=== PATIENT | female | born 1945 | race Caucasian/White ===

== ENCOUNTER → 2016-09-14 | Outpatient (CLI) | payer MEDICARE ==
--- NOTE | 2016-09-15 08:31 | ECHOF ---
Referral Reason:R06.01 Orthopnea MEASUREMENTS -------- HEIGHT: 170.2 cm WEIGHT: 115.2 kg BP: 139/65 RVIDd: 2.4 cm (< 3.3) IVSd: 1.3 cm (0.6 - 1.1) LVIDd: 4.4 cm (3.9 - 5.3) LVPWd: 1.4 cm (0.6 - 1.1) IVSs: 1.7 cm LVIDs: 2.7 cm LVPWs: 1.8 cm LAESV Index (A-L): 10.86 ml/m Ao Diam: 3.3 cm (2.0 - 3.7) AV Cusp: 1.9 cm (1.5 - 2.6) LA Diam: 3.1 cm (2.7 - 3.8) MV EXCURSION: 18.048 mm (> 18.000) MV EF SLOPE: 58 mm/s (70 - 150) EPSS: 1.1 cm MV E Ab: 0.68 m/s MV DecT: 263 ms MV A Ab: 0.80 m/s MV E/A Ratio: 0.85 RAP: 5.00 mmHg RVSP: 10.82 mmHg FINDINGS -------- Sinus rhythm. This was a technically adequate study. The left ventricular size is normal. There is moderate concentric left ventricular hypertrophy. Overall left ventricular systolic function is normal with, an EF between 55 - 60 %. The right ventricle is normal in size and function. Normal LA size by volume 22+/-6 ml/m2. The right atrium is normal in size. The aortic valve is trileaflet, and appears structurally normal. No aortic stenosis or regurgitation. The mitral valve is normal. There is trace to mild mitral regurgitation. Trace tricuspid regurgitation present. There is no evidence of pulmonary hypertension. The right ventricular systolic pressure, as measured by Doppler, is 10.82mmHg. The pulmonic valve was not well visualized. There is no pulmonic regurgitation present. The aortic root size is normal. Normal inferior vena cava with normal inspiratory collapse consistent with estimated right atrial pressure of 5 mmHg. There is no pericardial effusion. CONCLUSIONS -------- 1. Sinus rhythm. 2. The right ventricular systolic pressure, as measured by Doppler, is 10.82mmHg. 3. The pulmonic valve was not well visualized. 4. There is no pulmonic regurgitation present. 5. The aortic root size is normal. 6. There is no pericardial effusion. 7. This was a technically adequate study. 8. There is moderate concentric left ventricular hypertrophy. 9. Overall left ventricular systolic function is normal with, an EF between 55 - 60 %. 10. Normal LA size by volume 22+/-6 ml/m2. 11. The aortic valve is trileaflet, and appears structurally normal. No aortic stenosis or regurgitation. 12. There is trace to mild mitral regurgitation. 13. Trace tricuspid regurgitation present. 14. There is no evidence of pulmonary hypertension. ANALYTICS DIRECTOR: Fidencio Henderson RDCS
== END | disposition home or self-care (01) ==
LOC: RADECHMAIN 15:56
PROVIDERS: ATTEND Internal Medicine
DX: I08.1 Rheumatic disorders of both mitral and tricuspid valves (principal)
CPT/HCPCS: 93306

== ENCOUNTER → 2016-10-02 | Outpatient (CLI) | payer MEDICARE ==
[2016-10-02 11:22] VITALS: BMI 38.8
== END | disposition home or self-care (01) ==
LOC: MNTWWP 10:54
PROVIDERS: ATTEND Internal Medicine
DX: E66.01 Morbid (severe) obesity due to excess calories (principal)
CPT/HCPCS: 97802

== ENCOUNTER 2019-09-25 09:38 | Day surgery (SDC) | payer MEDICARE ==
[2019-09-23 11:38] VITALS: BMI 41.1
[~2019-09-25 09:38] MED LIST: LACTATED RINGERS 1,000 ML IV SCH; LIDOCAINE 1% (10MG/ML) FOR IV START INTRADERMA PRN
[2019-09-25 10:13] VITALS: TEMP 98.2
[2019-09-25] MEDS ORDERED: PROPOFOL 10 MG/ML 20 ML VIAL IV ONE (10:54)
--- NOTE | 2019-09-25 11:24 | P.PCN ---
Date of Procedure: 09/25/19 Implants: BRIEF HISTORY: Patient is a 73-year-old pleasant female scheduled for an elective colonoscopy as a part of evaluation of positive cologuard PROCEDURE PERFORMED: Colonoscopy snare polypectomy. PREOPERATIVE DIAGNOSIS: positive cologuard IV sedation per Anesthesia. PROCEDURE: After informed consent was obtained, the patient, was brought into the endoscopy unit. IV sedation was administered by Anesthesia under continuous monitoring. Digital rectal examination was normal. Initially the Olympus CF-160 flexible video colonoscope was then inserted in the rectum, gradually advanced into the cecum without any difficulty. Careful examination was performed as the scope was gradually being withdrawn. Ileocecal valve and the appendiceal orifice were visualized and appeared normal. There was a 3 cm broad-based polyp adjacent to the appendiceal orifice which was removed by piecemeal snare malick ypectomy and complete polypectomy could not be accomplished. In the ascending colon there was a 1 cm polyp removed by snare polypectomy. In the descending colon there was a 1 cm flat polyp removed by snare polypectomy. In the; there was a 2 cm polyp removed by snare polypectomy. The rectum appeared normal. Retroflexion was performed in the rectum and no lesions were seen. The patient tolerated the procedure well. IMPRESSION: 3 cm broad-based cecal polyp adjacent to the appendiceal orifice and status post snare polypectomy ( complete polypectomy not accomplished) 1 cm ascending colon polyp status post polypectomy 1. centimeters meter flat descending colon polyp status post polypectomy 2 cm; sigmoid colon polyp status post polypectomy RECOMMENDATIONS: Findings of this examination were discussed with the patient as well as a family. She was advised to follow with the biopsy results. If the biopsy results will plan a repeat colonoscopy in 3-6 months
[2019-09-25 11:26] VITALS: BP 122/62; PULSE 79; RESP 17
== END 2019-09-25 11:54 | disposition home or self-care (01) ==
LOC: ORWHC2ENDO 09:38
PROVIDERS: ATTEND Internal Medicine Gastroenterology
DX: D12.2 Benign neoplasm of ascending colon (principal); K63.5 Polyp of colon; D12.4 Benign neoplasm of descending colon; D12.5 Benign neoplasm of sigmoid colon; I10 Essential (primary) hypertension; E07.9 Disorder of thyroid, unspecified; K21.9 Gastro-esophageal reflux disease without esophagitis; I78.0 Hereditary hemorrhagic telangiectasia; Z88.2 Allergy status to sulfonamides; Z79.899 Other long term (current) drug therapy; Z79.890 Hormone replacement therapy; Z88.8 Allergy status to other drugs, medicaments and biological substances; Z96.652 Presence of left artificial knee joint
CPT/HCPCS: 88305; 45385; J2704

== ENCOUNTER 2019-09-25 17:34 | Inpatient (IN) | payer MEDICARE ==
[2019-09-25] MEDS ORDERED: PANTOPRAZOLE 40 MG/10 ML VIAL IVP STA (19:17)
--- NOTE | 2019-09-25 19:21 | ED ---
General Adult HPI <Italo Rodriguez - Last Filed: 09/25/19 20:52> - General Source: patient, RN notes reviewed Mode of arrival: ambulatory Limitations: no limitations <Yohan Sanches - Last Filed: 09/25/19 20:59> - General Chief complaint: GI Bleed Stated complaint: surgery complications Time Seen by Provider: 09/25/19 19:04 - History of Present Illness Initial comments: 73-year-old female with a past medical history of GERD, hypertension, as Osler Larios Rendu disease presents to the emergency room for a chief complaint of rectal bleeding. Patient states she had a colonoscopy performed around 10 AM this morning where she reports that for polyps were removed. This was performed by Dr. Ruiz. Reports that she had had some bleeding since that time. States it started as a dark red blood and then progressed to bright red blood. Patient reports that she has turned the toilet bowl water completely red about 5 times. Patient denies any other symptoms. Patient called Dr. Ruiz who reported she should return to the emergency room.Patient has no other complaints at this time including shortness of breath, chest pain, abdominal pain, nausea or vomiting, headache, or visual changes. (Yohan Sanches) - Related Data Home Medications Medication Instructions Recorded Confirmed Benazepril [Lotensin] 10 mg PO DAILY 09/23/19 09/25/19 Levothyroxine Sodium [Synthroid] 88 mcg PO DAILY 09/23/19 09/25/19 Omeprazole 20 mg PO DAILY 09/23/19 09/25/19 amLODIPine [Norvasc] 5 mg PO DAILY 09/23/19 09/25/19 hydroCHLOROthiazide [Hydrodiuril] 25 mg PO DAILY 09/23/19 09/25/19 Allergies Allergy/AdvReac Type Severity Reaction Status Date / Time rosuvastatin [From Crestor] AdvReac SEVERE Verified 09/25/19 18:33 JOINT PAIN Sulfa (Sulfonamide AdvReac Anaphylaxis Verified 09/25/19 18:33 Antibiotics) Review of Systems ROS Other: All systems not noted in ROS Statement are negative. <Italo Rodriguez - Last Filed: 09/25/19 20:52> ROS Other: All systems not noted in ROS Statement are negative. <Yohan Sanches - Last Filed: 09/25/19 20:59> ROS Statement: Those systems with pertinent positive or pertinent negative responses have been documented in the HPI. Past Medical History Past Medical History: Blood Disorder, GERD/Reflux, Hypertension, Thyroid Disorder Additional Past Medical History / Comment(s): HX OWRD (OSLER LARIOS RENDU DISEASE-BLOOD DISORDER). + COLOGARD History of Any Multi-Drug Resistant Organisms: None Reported Past Surgical History: Appendectomy, Joint Replacement, Orthopedic Surgery, Tubal Ligation Additional Past Surgical History / Comment(s): BILAT CTR. LT TKA. COLONOSCOPY Past Anesthesia/Blood Transfusion Reactions: No Reported Reaction Past Psychological History: No Psychological Hx Reported Smoking Status: Former smoker Past Alcohol Use History: None Reported Past Drug Use History: None Reported - Past Family History Mother Family Medical History: Blood Disorder Additional Family Medical History / Comment(s): OWRD-BLEEDING DISORDER Father Family Medical History: Cancer Additional Family Medical History / Comment(s): SKIN <Yohan Sanches - Last Filed: 09/25/19 20:59> General Exam Limitations: no limitations General appearance: alert, in no apparent distress Head exam: Present: atraumatic, normocephalic, normal inspection Eye exam: Present: normal appearance, PERRL, EOMI. Absent: scleral icterus, conjunctival injection, periorbital swelling ENT exam: Present: normal exam, mucous membranes moist Neck exam: Present: normal inspection, full ROM. Absent: tenderness, meningismus, lymphadenopathy Respiratory exam: Present: normal lung sounds bilaterally. Absent: respiratory distress, wheezes, rales, rhonchi, stridor Cardiovascular Exam: Present: regular rate, normal rhythm, normal heart sounds. Absent: systolic murmur, diastolic murmur, rubs, gallop, clicks GI/Abdominal exam: Present: soft, normal bowel sounds. Absent: distended, tenderness, guarding, rebound, rigid Neurological exam: Present: alert <Yohan Sanches - Last Filed: 09/25/19 20:59> Course <Italo Rodriguez - Last Filed: 09/25/19 20:52> Vital Signs 09/25/19 18:31 Temperature 98.3 F Pulse Rate 98 Respiratory 16 Rate Blood Pressure 138/82 O2 Sat by Pulse 96 Oximetry - Reevaluation(s) Reevaluation #1: 09/25/19 20:47 Patient reevaluated and reexamined by myself, Dr. Rodriguez. I agree with PA findings. This includes diagnostic interpretation and treatment plan. Patient resting comfortably in bed. Blood work and vital signs reviewed. Patient updated on results and plan 09/25/19 20:[address] oscar with GI who would like patient admitted to medicine. [facility] physician group has been paged covering for Dr. López. Case also discussed with Dr. Cantrell, who agrees with ICU admission and will consult. (Italo Rodriguez) EKG Findings - EKG Comments: EKG Findings:: Normal sinus rhythm 93. NC 196. QRS 84. QT 364. QTC 452. Left axis. Normal QRS. No acute ST change. <Italo Rodriguez - Last Filed: 09/25/19 20:52> Medical Decision Making - Lab Data Result diagrams: 09/25/19 19:30 09/25/19 19:30 <Italo Rodriguez - Last Filed: 09/25/19 20:52> - Lab Data Result diagrams: 09/25/19 19:30 09/25/19 19:30 <Yohan Sanches - Last Filed: 09/25/19 20:59> - Medical Decision Making Vitals are stable. CBC CMP is unremarkable.hemoglobin is stable at 13.7. Patient is well-appearing however on my evaluation she did have hematochezia noted in the toilet bowl.Dr. Ruiz was contacted, rpatient was admitted to medicine. (Yohan Sanches) - Lab Data Lab Results 09/25/19 09/25/19 09/25/19 Range/Units 19:30 19:30 19:30 WBC 10.3 (3.8-10.6) k/uL RBC 4.66 (3.80-5.40) m/uL Hgb 13.7 (11.4-16.0) gm/dL Hct 41.5 (34.0-46.0) % MCV 89.0 (80.0-100.0) fL MCH 29.4 (25.0-35.0) pg MCHC 33.0 (31.0-37.0) g/dL RDW 12.9 (11.5-15.5) % Plt Count 287 (150-450) k/uL Neutrophils % 75 % Lymphocytes % 17 % Monocytes % 5 % Eosinophils % 1 % Basophils % 1 % Neutrophils # 7.7 (1.3-7.7) k/uL Lymphocytes # 1.8 (1.0-4.8) k/uL Monocytes # 0.5 (0-1.0) k/uL Eosinophils # 0.1 (0-0.7) k/uL Basophils # 0.1 (0-0.2) k/uL PT 9.8 (9.0-12.0) sec INR 0.9 (<1.2) APTT 22.4 (22.0-30.0) sec Sodium 135 L (137-145) mmol/L Potassium 3.8 (3.5-5.1) mmol/L Chloride 102 (98-107) mmol/L Carbon Dioxide 25 (22-30) mmol/L Anion Gap 8 mmol/L BUN 14 (7-17) mg/dL Creatinine 0.73 (0.52-1.04) mg/dL Est GFR (CKD-EPI)AfAm >90 (>60 ml/min/1.73 sqM) Est GFR (CKD-EPI)NonAf 83 (>60 ml/min/1.73 sqM) Glucose 126 H (74-99) mg/dL Calcium 9.1 (8.4-10.2) mg/dL Total Bilirubin 0.6 (0.2-1.3) mg/dL AST 24 (14-36) U/L ALT 16 (4-34) U/L Alkaline Phosphatase 81 (38-126) U/L Troponin I (0.000-0.034) ng/mL Total Protein 6.8 (6.3-8.2) g/dL Albumin 4.1 (3.5-5.0) g/dL Blood Type Blood Type Confirm Blood Type Recheck Bld Type Recheck Status Antibody Screen Spec Expiration Date 09/25/19 09/25/19 09/25/19 Range/Units 19:30 19:30 20:10 WBC (3.8-10.6) k/uL RBC (3.80-5.40) m/uL Hgb (11.4-16.0) gm/dL Hct (34.0-46.0) % MCV (80.0-100.0) fL MCH (25.0-35.0) pg MCHC (31.0-37.0) g/dL RDW (11.5-15.5) % Plt Count (150-450) k/uL Neutrophils % % Lymphocytes % % Monocytes % % Eosinophils % % Basophils % % Neutrophils # (1.3-7.7) k/uL Lymphocytes # (1.0-4.8) k/uL Monocytes # (0-1.0) k/uL Eosinophils # (0-0.7) k/uL Basophils # (0-0.2) k/uL PT (9.0-12.0) sec INR (<1.2) APTT (22.0-30.0) sec Sodium (137-145) mmol/L Potassium (3.5-5.1) mmol/L Chloride (98-107) mmol/L Carbon Dioxide (22-30) mmol/L Anion Gap mmol/L BUN (7-17) mg/dL Creatinine (0.52-1.04) mg/dL Est GFR (CKD-EPI)AfAm (>60 ml/min/1.73 sqM) Est GFR (CKD-EPI)NonAf (>60 ml/min/1.73 sqM) Glucose (74-99) mg/dL Calcium (8.4-10.2) mg/dL Total Bilirubin (0.2-1.3) mg/dL AST (14-36) U/L ALT (4-34) U/L Alkaline Phosphatase (38-126) U/L Troponin I <0.012 (0.000-0.034) ng/mL Total Protein (6.3-8.2) g/dL Albumin (3.5-5.0) g/dL Blood Type AB Positive Blood Type Confirm AB Positive Blood Type Recheck No Previous Record Bld Type Recheck Status CABO Indicated Antibody Screen NEGATIVE Spec Expiration Date 09/28/2019 - 2329 Disposition <Italo Rodriguez - Last Filed: 09/25/19 20:52> Is patient prescribed a controlled substance at d/c from ED?: No Time of Disposition: 20:59 <Yohan Sanches - Last Filed: 09/25/19 20:59> Clinical Impression: Hematochezia Disposition: ADMITTED IP TO THIS HOSP Referrals: Anthony Elizondo MD [Primary Care Provider] - 1-2 days
[2019-09-25 19:47] LABS: Basophils # (A) 0.1 k/uL (0-0.2); Basophils % (A) 1 %; Eosinophils # (A) 0.1 k/uL (0-0.7); Eosinophils % (A) 1 %; HCT 41.5 % (34.0-46.0); HGB 13.7 gm/dL (11.4-16.0); Lymphocytes # (A) 1.8 k/uL (1.0-4.8); Lymphocytes % (A) 17 %; MCH 29.4 pg (25.0-35.0); Mean Platelet Volume 8.1; Monocytes # (A) 0.5 k/uL (0-1.0); Monocytes % (A) 5 %; Neutrophils # (A) 7.7 k/uL (1.3-7.7); Neutrophils % (A) 75 %; Platelet Count 287 k/uL (150-450); RBC 4.66 m/uL (3.80-5.40); RDW 12.9 % (11.5-15.5); WBC 10.3 k/uL (3.8-10.6)
[2019-09-25 20:03] LABS: INR 0.9 (<1.2); Partial Thromboplastin Time 22.4 sec (22.0-30.0); Prothrombin Time 9.8 sec (9.0-12.0)
[2019-09-25 20:09] LABS: Potassium 3.8 mmol/L (3.5-5.1)
[2019-09-25 20:10] LABS: ALT 16 U/L (4-34); AST 24 U/L (14-36); African American GFR (CKD) >90 (>60 ml/min/1.73 sqM); Albumin 4.1 g/dL (3.5-5.0); Alkaline Phosphatase 81 U/L (38-126); Anion Gap 8 mmol/L; Blood Urea Nitrogen 14 mg/dL (7-17); Calcium 9.1 mg/dL (8.4-10.2); Carbon Dioxide 25 mmol/L (22-30); Chloride 102 mmol/L (98-107); Glucose 126 mg/dL (74-99); Non-African American GFR(CKD) 83 (>60 ml/min/1.73 sqM); Sodium 135 mmol/L (137-145); Total Bilirubin 0.6 mg/dL (0.2-1.3); Total Protein 6.8 g/dL (6.3-8.2)
[2019-09-25] MEDS ORDERED: NALOXONE 0.4 MG/ML 1 ML VIAL IV PRN (20:54)
[2019-09-25] MEDS: DEXTROSE 5%-0.45% NACL 1,000 ML IV SCH (21:33)
[2019-09-25 21:49] LABS: Glucose,Whole Blood 134 mg/dL (75-99)
--- NOTE | 2019-09-25 23:33 | P.HPIM ---
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 The patient underwent a diagnostic colonoscopy earlier today after a screening cologuard was abnormal. Patient was informed that she had 3 polyps that were removed and she was subsequently discharged in stable condition at around 1 PM to home. She was at home when she suddenly developed lower abdominal pressure sensation and subsequent bloody bowel movements at around 3 PM. She reports that her initial bowel movement was somewhat dark but then the subsequent movements became more and more bright red. She had 3 bowel movements at home, 3 while waiting in the emergency room, and 3 after being placed in a room in the emergency room. She denied abdominal pain though notes experiencing some lightheadedness when trying to stand up. Denied any additional complaints. Denied any previous history of bleeding. Denied nausea, vomiting, fever, chills, chest pain, or shortness of breath. In the emergency room, hemoglobin was 13.7, platelets 287, troponin less than 0.012, sodium 135, potassium 3.8, BUN 14, and creatinine 0.73. EKG revealed normal sinus rhythm at 93 bpm. Review of Systems Pertinent positives and negatives as discussed in HPI, a complete review of systems was performed and all other systems are negative. Past Medical History Past Medical History: Blood Disorder, GERD/Reflux, Hypertension, Thyroid Disorder Additional Past Medical History / Comment(s): HX OWRD (OSLER LARIOS RENDU DISEASE-BLOOD DISORDER). + COLOGARD History of Any Multi-Drug Resistant Organisms: None Reported Past Surgical History: Appendectomy, Joint Replacement, Orthopedic Surgery, Tubal Ligation Additional Past Surgical History / Comment(s): BILAT CTR. LT TKA. 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 Smoking Status: Former smoker Past Alcohol Use History: None Reported Additional Past Alcohol Use History / Comment(s): QUIT SMOKING 1984 Past Drug Use History: None Reported - Past Family History Mother Family Medical History: Blood Disorder, COPD Additional Family Medical History / Comment(s): OWRD-BLEEDING DISORDER, Father Family Medical History: Cancer, Congestive Heart Failure (CHF) Additional Family Medical History / Comment(s): SKIN, Medications and Allergies Home Medications Medication Instructions Recorded Confirmed Type Benazepril [Lotensin] 10 mg PO DAILY 09/23/19 09/25/19 History Levothyroxine Sodium [Synthroid] 88 mcg PO DAILY 09/23/19 09/25/19 History Omeprazole 20 mg PO DAILY 09/23/19 09/25/19 History amLODIPine [Norvasc] 5 mg PO DAILY 09/23/19 09/25/19 History hydroCHLOROthiazide [Hydrodiuril] 25 mg PO DAILY 09/23/19 09/25/19 History metroNIDAZOLE [metroNIDAZOLE 0.75% 1 applic TOPICAL BID PRN 09/25/19 09/25/19 History Gel] Allergies Allergy/AdvReac Type Severity Reaction Status Date / Time Sulfa (Sulfonamide Allergy Anaphylaxis Verified 09/25/19 21:07 Antibiotics) rosuvastatin [From Crestor] AdvReac SEVERE Verified 09/25/19 21:07 JOINT PAIN Physical Exam Vitals: Vital Signs Temp Pulse Resp BP Pulse Ox 09/25/19 21:07 88 181 H 132/85 95 09/25/19 18:31 98.3 F 98 16 138/82 96 Intake and Output 09/25/19 09/25/19 09/26/19 14:59 22:59 06:59 Other: Weight 120.1 kg General: non toxic, no distress, appears at stated age, morbidly obese Derm: no unusual rashes/lesions no unusual ecchymoses, warm, dry Head: atraumatic, normocephalic, symmetric Eyes: EOMI, no lid lag, anicteric sclera, pupils equal round reactive to light ENT: Nose and ears atraumatic, no thrush, no pharyngeal erythema Neck: No thyromegaly, no cervical lymphadenopathy, trachea midline, supple Mouth: no lip lesion, mucus membranes moist Cardiovascular: S1S2 reg, no murmur, positive posterior tibial pulse bilateral, no edema, capillary refill less than 2 seconds Lungs: CTA bilateral, no rhonchi, no rales , no accessory muscle use Abdominal: soft, nontender to palpation, no guarding, no appreciable organomegaly, normal bowel sounds Ext: no gross muscle atrophy, muscle strength 5 out of 5 in all 4 extremities grossly, no contractures, Neuro: CN II-XI grossly intact, light touch intact all 4 extremities, finger to nose within normal limits, Psych: Alert, oriented, appropriate affect Results CBC & Chem 7: 09/25/19 19:30 09/25/19 19:30 Labs: Abnormal Lab Results - Last 24 Hours (Table) 09/25/19 09/25/19 Range/Units 19:30 21:47 Sodium 135 L (137-145) mmol/L Glucose 126 H (74-99) mg/dL POC Glucose (mg/dL) 134 H (75-99) mg/dL Thrombosis Risk Factor Assmnt - Choose All That Apply Each Factor Represents 1 point: Obesity (BMI >25) Each Risk Factor Represents 2 Points: Age 61-74 years Thrombosis Risk Factor Assessment Total Risk Factor Score: 3 Thrombosis Risk Factor Assessment Level: Moderate Risk Assessment and Plan Plan: Acute GI bleed, postoperatively after multiple polyp removal, with history of Ylplx-Nlkkp-Zkhwm syndrome -Continue with Protonix 40 mg IVP twice a day -GI consult -Nothing by mouth for now -Monitor CBC every 6 hourly -Continue with IV fluids -Cardiac monitoring Chronic conditions: Hypertension, hypothyroidism -Hold off on antihypertensives for now -Continue with levothyroxine DVT prophylaxis -IPCDs The patient is admitted with an anticipated greater than 2 midnight stay for evaluation of GI bleed CODE STATUS: Full Code Discussed with: Patient Anticipated discharge date: 2-[address]: Home A total of 40 minutes was spent on the care of this complex patient more than 50% of the time was spent in counseling and care coordination.
[2019-09-26 00:44] LABS: Basophils % (A) 0 %; Eosinophils # (A) 0.1 k/uL (0-0.7); Eosinophils % (A) 1 %; HCT 34.7 % (34.0-46.0); HGB 11.6 gm/dL (11.4-16.0); Lymphocytes # (A) 1.2 k/uL (1.0-4.8); Lymphocytes % (A) 15 %; MCH 30.2 pg (25.0-35.0); MCHC 33.5 g/dL (31.0-37.0); MCV 90.3 fL (80.0-100.0); Mean Platelet Volume 8.2; Monocytes # (A) 0.3 k/uL (0-1.0); Monocytes % (A) 4 %; Neutrophils # (A) 6.5 k/uL (1.3-7.7); Neutrophils % (A) 80 %; Platelet Count 233 k/uL (150-450); RBC 3.84 m/uL (3.80-5.40); WBC 8.2 k/uL (3.8-10.6)
[2019-09-26 05:31] LABS: Basophils % (A) 0 %; Eosinophils # (A) 0.1 k/uL (0-0.7); Eosinophils % (A) 1 %; HCT 34.5 % (34.0-46.0); HGB 11.3 gm/dL (11.4-16.0); Lymphocytes # (A) 1.9 k/uL (1.0-4.8); Lymphocytes % (A) 27 %; MCH 29.6 pg (25.0-35.0); MCHC 32.8 g/dL (31.0-37.0); MCV 90.4 fL (80.0-100.0); Mean Platelet Volume 8.6; Monocytes # (A) 0.4 k/uL (0-1.0); Monocytes % (A) 5 %; Neutrophils # (A) 4.6 k/uL (1.3-7.7); Neutrophils % (A) 65 %; Platelet Count 243 k/uL (150-450); RBC 3.81 m/uL (3.80-5.40); WBC 7.1 k/uL (3.8-10.6)
[2019-09-26 05:39] LABS: African American GFR (CKD) >90 (>60 ml/min/1.73 sqM); Anion Gap 6 mmol/L; Blood Urea Nitrogen 12 mg/dL (7-17); Calcium 8.4 mg/dL (8.4-10.2); Carbon Dioxide 23 mmol/L (22-30); Chloride 104 mmol/L (98-107); Glucose 127 mg/dL (74-99); Non-African American GFR(CKD) 90 (>60 ml/min/1.73 sqM); Potassium 3.5 mmol/L (3.5-5.1); Sodium 133 mmol/L (137-145)
[2019-09-26] MEDS ORDERED: Potassium Replacement Protocol 1 EACH MISC MISCELLANE PRN (05:40)
[2019-09-26] MEDS: DEXTROSE 5%-0.45% NACL 1,000 ML IV SCH (05:46)
[2019-09-26] MEDS: LEVOTHYROXINE 88 MCG TAB PO SCH (05:47)
[2019-09-26] MEDS: POTASSIUM CHLORIDE ER 20 MEQ TAB.ER PO SCH ×2 (05:47→06:48)
[2019-09-26 06:01] LABS: Glucose,Whole Blood 127 mg/dL (75-99)
[2019-09-26] MEDS: PANTOPRAZOLE 40 MG/10 ML VIAL IVP SCH ×2 (08:45→20:08)
[2019-09-26] MEDS ORDERED: PANTOPRAZOLE 40 MG/10 ML VIAL IV SCH (09:00)
[2019-09-26] MEDS: SODIUM CHLORIDE 0.9% 1,000 ML IV SCH ×2 (10:28→20:08)
[2019-09-26 11:48] LABS: HCT 34.3 % (34.0-46.0); HGB 11.1 gm/dL (11.4-16.0); MCH 29.8 pg (25.0-35.0); MCHC 32.3 g/dL (31.0-37.0); MCV 92.1 fL (80.0-100.0); Mean Platelet Volume 8.1; Platelet Count 222 k/uL (150-450); RBC 3.72 m/uL (3.80-5.40); WBC 7.4 k/uL (3.8-10.6)
[2019-09-26] MEDS: amLODIPine 5 MG TAB PO SCH (12:27)
[2019-09-26] MEDS: lisinopriL 10 MG TAB PO SCH (12:27)
--- NOTE | 2019-09-26 13:12 | P.CNPUL ---
History of Present Illness Consult date: 09/26/19 Requesting physician: José Canas Chief complaint: Bright red blood per rectum. History of present illness: This is a 73-year-old female, had colonoscopy on 09/25/19.. This was done mostly because a screening cologuard Guarded was abnormal. Patient was found to have 3 polyps that were removed, and patient was discharged home. After she was discharged home, patient developed lower abdominal pressure sensation and sub sequently bloody bowel movements around 3 PM. Initial bowel movement was noted to be dark, then she noticed bright red blood per rectum. She had basically bright red blood per rectum, noted in 3 bowel movements at home. Then the patient was brought into the ER, and by now she was complaining of some lightheadedness. Patient had a drop in her hemoglobin from 13.7-11.1 in one day. Patient was admitted to the ICU, and this consult was initiated. Presently asymptomatic, no further episodes of bloody bowel movements. Presently asymptomatic, denies any nausea vomiting or abdominal pain, denies any lightheadedness. Patient did not require any blood transfusion, and she is yet to be seen by gastroenterology on consultation. Review of Systems Constitutional: Denies weight loss fever or chills. HEENT: Negative. 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 Pulmonary: Negative. GI: As noted in HPI. Cardiac: Negative. Genitourinary: Negative. 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 Endocrine: Negative psychiatric: Negative Neurologic: Negative Skin: Negative Musculoskeletal: Negative Lymphatics: Negative Past Medical History Past Medical History: Blood Disorder, GERD/Reflux, Hypertension, Thyroid Disorder Additional Past Medical History / Comment(s): HX OWRD (OSLER LARIOS RENDU DISEASE-BLOOD DISORDER). + COLOGARD History of Any Multi-Drug Resistant Organisms: None Reported Past Surgical History: Appendectomy, Joint Replacement, Orthopedic Surgery, Tubal Ligation Additional Past Surgical History / Comment(s): BILAT CTR. LT TKA. 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 Smoking Status: Former smoker Past Alcohol Use History: None Reported Additional Past Alcohol Use History / Comment(s): QUIT SMOKING 1984 Past Drug Use History: None Reported - Past Family History Mother Family Medical History: Blood Disorder, COPD Additional Family Medical History / Comment(s): OWRD-BLEEDING DISORDER, Father Family Medical History: Cancer, Congestive Heart Failure (CHF) Additional Family Medical History / Comment(s): SKIN, Medications and Allergies Home Medications Medication Instructions Recorded Confirmed Type Benazepril [Lotensin] 10 mg PO DAILY 09/23/19 09/25/19 History Levothyroxine Sodium [Synthroid] 88 mcg PO DAILY 09/23/19 09/25/19 History Omeprazole 20 mg PO DAILY 09/23/19 09/25/19 History amLODIPine [Norvasc] 5 mg PO DAILY 09/23/19 09/25/19 History hydroCHLOROthiazide [Hydrodiuril] 25 mg PO DAILY 09/23/19 09/25/19 History metroNIDAZOLE [metroNIDAZOLE 0.75% 1 applic TOPICAL BID PRN 09/25/19 09/25/19 History Gel] Allergies Allergy/AdvReac Type Severity Reaction Status Date / Time Sulfa (Sulfonamide Allergy Anaphylaxis Verified 09/25/19 21:07 Antibiotics) rosuvastatin [From Crestor] AdvReac SEVERE Verified 09/25/19 21:07 JOINT PAIN Physical Exam Vitals: Vital Signs Temp Pulse Resp BP Pulse Ox 09/26/19 12:00 67 18 125/63 98 09/26/19 11:00 70 19 112/81 97 09/26/19 10:00 62 16 121/67 97 09/26/19 09:00 69 18 122/65 96 09/26/19 08:00 98.0 F 66 17 118/68 95 09/26/19 07:45 18 09/26/19 07:00 64 19 124/74 97 09/26/19 06:00 63 20 125/66 97 09/26/19 05:00 72 12 136/82 96 09/26/19 04:00 97.7 F 98 29 H 121/76 92 L 09/26/19 03:00 64 18 121/69 97 09/26/19 02:00 65 13 124/71 94 L 09/26/19 01:00 16 117/67 94 L 09/26/19 00:19 68 20 117/67 93 L 09/26/19 00:00 71 13 119/65 93 L 09/25/19 23:00 97.7 F 77 14 117/74 93 L 09/25/19 22:00 84 13 130/79 95 09/25/19 21:07 88 181 H 132/85 95 09/25/19 18:31 98.3 F 98 16 138/82 96 Intake and Output 09/25/19 09/26/19 09/26/19 22:59 06:59 14:59 Intake Total 125 1000 500 Output Total 120 350 750 Balance 5 650 -250 Intake: IV 125 1000 500 Dextrose 5%-0.45% NaCl 1, 125 1000 500 000 ml @ 125 mls/hr IV . Q8H [facility] Rx#:[id number] Output: Urine 750 Stool 120 Urine/Stool Mix 350 Other: Voiding Method Bedside Commode # Voids 0 0 # Bowel Movements 1 1 Weight 120.1 kg 120.3 kg Physical Exam: Revealed a 73-year-old female in no distress. Very pleasant. Head: Atraumatic, normocephalic. HEENT:[Neck is supple.] [No neck masses.] [No thyromegaly.] [No JVD.] Chest: [Clear throughout, no crackles, no rhonchi, no wheezes.] Cardiac Exam: [Normal S1 and S2, no S3 gallop, no murmur.] Abdomen: [Soft, nontender, no megaly, no rebound, no guarding, normal bowel sounds.] Extremities: [No clubbing, no edema, no cyanosis.] Neurological Exam: [No focal neurologic deficit.] Alert and oriented 3. Psychiatric: Normal mood, affect and normal mental status examination. Skin: No rashes. 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 History of hypertension History of hypothyroidism Recommendation: Continue to monitor the patient for now. GI to see on consultation. Agree with Protonix empirically although this is mostly a lower GI bleed unless for otherwise. Continue to monitor CBC every 6 hours. Continue IV fluids. Transfer patient to a regular medical floor assuming she remains stable in the next few hours. Time with Patient: Greater than 30
--- NOTE | 2019-09-26 13:23 | P.PN ---
Subjective Progress Note Date: 09/26/19 Principal diagnosis: GI bleed Patient is a 73-year-old female with a history of Emqng-[id number]-Gwdvi syndrome, hypertension, and hypothyroidism who presented to the emergency department secondary to GI bleed. She had a colonoscopy in the morning of 09/24 with polypectomy. Patient seen and examined at bedside. She has not had any additional bright red bowel movements since this morning. Denies any nausea, vomiting, or abdominal pain. She does not have any history of GI bleed in the past. She states that her symptoms of Osler [place] Jace to syndrome of are typically nose bleeds as well as finger telangiectasias. She denies any chest pain, shortness breath, or lightheadedness. General: non toxic, no distress, appears at stated ageDerm: warm, dry Head: atraumatic, normocephalic, symmetric Eyes: EOMI, no lid lag, anicteric sclera Mouth: no lip lesion, mucus membranes moist Cardiovascular: S1S2 reg, no murmur, positive posterior tibial pulse bilateral, Lungs: CTA bilateral, no rhonchi, no rales , no accessory muscle use Abdominal: soft, nontender to palpation, no guarding, no appreciable organomegaly Ext: no gross muscle atrophy, no edema, no contractures Neuro: CN II-XI grossly intact, no focal neuro deficits Psych: Alert, oriented, appropriate affect Blood per rectum, with GI bleed secondary to polypectomy removal -Hemoglobin stable -Clear liquid diet -GI recommendations -Continue cycle CBCs -IV fluids Acute blood loss anemia - due to GI bleed - Follow CBC - No indication for transfusion at this point in time Hypertension - resume norvasc and ACEI - Resume HCTZ in AM Hypothyroidism - Statin DVT prophylaxis: SCDs Discussed with: patient, nursing Anticipated discharge: in AM Anticipated discharge place: home A total of 25 minutes was spent on the care of this complex patient more than 50% of the time was spent in counseling and care coordination. Objective - Vital Signs Vital signs: Vital Signs Temp 98.0 F 09/26/19 08:00 Pulse 67 09/26/19 12:00 Resp 18 09/26/19 12:00 BP 125/63 09/26/19 12:00 Pulse Ox 98 09/26/19 12:00 Intake & Output 09/25/19 09/26/19 09/26/19 18:59 06:59 18:59 Intake Total 1125 500 Output Total 470 750 Balance 655 -250 Weight 118.388 kg 120.3 kg Intake: IV 1125 500 Dextrose 5%-0.45% NaCl 1, 1125 500 000 ml @ 125 mls/hr IV . Q8H [facility] Rx#:[id number] Output: Urine 750 Stool 120 Urine/Stool Mix 350 Other: Voiding Method Bedside Commode # Voids 0 0 # Bowel Movements 1 - Labs CBC & Chem 7: 09/26/19 11:31 09/26/19 09:01 Labs: Abnormal Lab Results - Last 24 Hours (Table) 09/25/19 09/25/19 09/26/19 Range/Units 19:30 21:47 04:56 RBC (3.80-5.40) m/uL Hgb 11.3 L (11.4-16.0) gm/dL Sodium 135 L (137-145) mmol/L Glucose 126 H (74-99) mg/dL POC Glucose (mg/dL) 134 H (75-99) mg/dL 09/26/19 09/26/19 09/26/19 Range/Units 04:56 05:59 11:31 RBC 3.72 L (3.80-5.40) m/uL Hgb 11.1 L (11.4-16.0) gm/dL Sodium 133 L (137-145) mmol/L Glucose 127 H (74-99) mg/dL POC Glucose (mg/dL) 127 H (75-99) mg/dL
[2019-09-26 17:42] LABS: HCT 34.3 % (34.0-46.0); HGB 10.7 gm/dL (11.4-16.0); Hypochromasia Slight; MCH 29.2 pg (25.0-35.0); MCHC 31.3 g/dL (31.0-37.0); MCV 93.3 fL (80.0-100.0); Mean Platelet Volume 8.1; Platelet Count 225 k/uL (150-450); RBC 3.67 m/uL (3.80-5.40); RDW 13.3 % (11.5-15.5); WBC 8.1 k/uL (3.8-10.6)
--- NOTE | 2019-09-26 20:12 | P.CONS ---
History of Present Illness - Reason for Consult Consult date: 09/26/19 Blood per rectum Requesting physician: José Canas - Chief Complaint Blood per rectum - History of Present Illness 73-year-old female with multiple medical comorbidities including Osler Althea Rendu syndrome, hypertension, hypothyroidism and recent polypectomy presented to the hospital due to complaints of blood per rectum. The patient had undergone colonoscopic evaluation for investigation of a positive Cologard test with removal of multiple large polyps including a incompletely resected cecal polyp. The patient went home where she developed multiple episodes of bright red blood per rectum. She had approximately 2 prior to presentation and 5 since that time. She's had no further episodes since this morning at 6:30 AM. She felt her last episode was more burgundy and dark in color than the bright red blood which she previously seen. No complaints of nausea, vomiting or any abdominal pain at this time. Hemoglobin stable at 11.1. Hemodynamically the patient is stable and being monitored in the ICU. Review of Systems REVIEW OF SYSTEMS: CONSTITUTIONAL: Denies any fevers, chills, weight change or fatigue. CARDIOVASCULAR: Denies any chest pain, palpitations high or low blood pressures RESPIRATORY: Denies any shortness of breath, hemoptysis or cough. GENITOURINARY: No dysuria or hematuria. MUSCULOSKELETAL: No weakness reported. SKIN: Denies any new rashes or lesions, jaundice or pallor. PSYCHIATRIC: Denies any depression or anxiety. NEUROLOGY: Denies headache, denies any new focal deficits. EARS/NOSE/THROAT: No recent hearing change, congestion, nasal discharge or sore throat. EYES: No pain in eyes, discharge or change in vision. GASTROINTESTINAL: As per HPI. Past Medical History Past Medical History: Blood Disorder, GERD/Reflux, Hypertension, Thyroid Disorder Additional Past Medical History / Comment(s): HX OWRD (OSLER LARIOS RENDU DISEASE-BLOOD DISORDER). + COLOGARD History of Any Multi-Drug Resistant Organisms: None Reported Past Surgical History: Appendectomy, Joint Replacement, Orthopedic Surgery, Tubal Ligation Additional Past Surgical History / Comment(s): BILAT CTR. LT TKA. 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 Smoking Status: Former smoker Past Alcohol Use History: None Reported Additional Past Alcohol Use History / Comment(s): QUIT SMOKING 1985 Past Drug Use History: None Reported - Past Family History Mother Family Medical History: Blood Disorder, COPD Additional Family Medical History / Comment(s): OWRD-BLEEDING DISORDER, Father Family Medical History: Cancer, Congestive Heart Failure (CHF) Additional Family Medical History / Comment(s): SKIN, Medications and Allergies Home Medications Medication Instructions Recorded Confirmed Type Benazepril [Lotensin] 10 mg PO DAILY 09/23/19 09/25/19 History Levothyroxine Sodium [Synthroid] 88 mcg PO DAILY 09/23/19 09/25/19 History Omeprazole 20 mg PO DAILY 09/23/19 09/25/19 History amLODIPine [Norvasc] 5 mg PO DAILY 09/23/19 09/25/19 History hydroCHLOROthiazide [Hydrodiuril] 25 mg PO DAILY 09/23/19 09/25/19 History metroNIDAZOLE [metroNIDAZOLE 0.75% 1 applic TOPICAL BID PRN 09/25/19 09/25/19 History Gel] Allergies Allergy/AdvReac Type Severity Reaction Status Date / Time Sulfa (Sulfonamide Allergy Anaphylaxis Verified 09/25/19 21:07 Antibiotics) rosuvastatin [From Crestor] AdvReac SEVERE Verified 09/25/19 21:07 JOINT PAIN Physical Exam Vitals: Vital Signs Temp Pulse Resp BP Pulse Ox 09/26/19 11:00 70 19 112/81 97 09/26/19 10:00 62 16 121/67 97 09/26/19 09:00 69 18 122/65 96 09/26/19 08:00 98.0 F 66 17 118/68 95 09/26/19 07:45 18 09/26/19 07:00 64 19 124/74 97 09/26/19 06:00 63 20 125/66 97 09/26/19 05:00 72 12 136/82 96 09/26/19 04:00 97.7 F 98 29 H 121/76 92 L 09/26/19 03:00 64 18 121/69 97 09/26/19 02:00 65 13 124/71 94 L 09/26/19 01:00 16 117/67 94 L 09/26/19 00:19 68 20 117/67 93 L 09/26/19 00:00 71 13 119/65 93 L 09/25/19 23:00 97.7 F 77 14 117/74 93 L 09/25/19 22:00 84 13 130/79 95 09/25/19 21:07 88 181 H 132/85 95 09/25/19 18:31 98.3 F 98 16 138/82 96 Intake and Output 09/25/19 09/26/19 09/26/19 22:59 06:59 14:59 Intake Total 125 1000 500 Output Total 120 350 750 Balance 5 650 -250 Intake: IV 125 1000 500 Dextrose 5%-0.45% NaCl 1, 125 1000 500 000 ml @ 125 mls/hr IV . Q8H [facility] Rx#:[id number] Output: Urine 750 Stool 120 Urine/Stool Mix 350 Other: Voiding Method Bedside Commode # Voids 0 0 # Bowel Movements 1 1 Weight 120.1 kg 120.3 kg On physical examination, patient appears comfortable in no apparent distress. HEAD: Normocephalic, atraumatic. EYES: No scleral icterus. No conjunctival injection. MOUTH: No lesions, tongue midline. NECK: Trachea midline, no gross abnormalities. CHEST: Clear to auscultation with no wheezing or rhonchi appreciated. HEART: S1 appreciated. ABDOMEN: Soft, obese. Bowel sounds are positive. No organomegaly. No guarding or rigidity. EXTREMITIES: No pedal edema. SKIN: No rashes, no jaundice. NEUROLOGIC: Alert and oriented x3. No focal deficits. Results CBC & Chem 7: 09/26/19 17:06 09/26/19 09:01 Labs: Abnormal Lab Results - Last 24 Hours (Table) 09/25/19 09/25/19 09/26/19 Range/Units 19:30 21:47 04:56 RBC (3.80-5.40) m/uL Hgb 11.3 L (11.4-16.0) gm/dL Sodium 135 L (137-145) mmol/L Glucose 126 H (74-99) mg/dL POC Glucose (mg/dL) 134 H (75-99) mg/dL 09/26/19 09/26/19 09/26/19 Range/Units 04:56 05:59 11:31 RBC 3.72 L (3.80-5.40) m/uL Hgb 11.1 L (11.4-16.0) gm/dL Sodium 133 L (137-145) mmol/L Glucose 127 H (74-99) mg/dL POC Glucose (mg/dL) 127 H (75-99) mg/dL Assessment and Plan (1) Post-polypectomy bleeding Narrative/Plan: 73-year-old female with multiple medical comorbidities who presented after colonoscopy earlier in the day with removal of multiple large polyps including a large cecal polyp which was incompletely resected. Patient had multiple episodes of painless bright red blood per rectum. Hemodynamically she remains stable but was admitted to the ICU for further monitoring. Last bowel movement was darker in color and she's had no bleeding during the day. Hemoglobin has remained stable at 11.1 today. Current Visit: Yes Status: Acute Code(s): MON6333 - SNOMED Code(s): 806012476 (2) History of colon polyps Current Visit: Yes Status: Acute Code(s): Z86.010 - PERSONAL HISTORY OF COLONIC POLYPS SNOMED Code(s): 543466259 (3) Hematochezia Current Visit: Yes Status: Acute Code(s): K92.1 - MELENA SNOMED Code(s): 084746345 Plan: Supportive care Okay for liquid diet Continue to monitor hemoglobin and hematocrit every 6 hours Await pathology from polypectomies Patient will need repeat colonoscopy in 3-6 months The patient has further bleeding or precipitous fall in hemoglobin may require endoscopy for control of bleeding Thank you for allowing us to participate in the care of the patient
[2019-09-26 23:18] LABS: HGB 10.2 gm/dL (11.4-16.0); MCHC 32.9 g/dL (31.0-37.0); MCV 91.1 fL (80.0-100.0); Mean Platelet Volume 8.2; Platelet Count 223 k/uL (150-450); RBC 3.41 m/uL (3.80-5.40); RDW 13.2 % (11.5-15.5); WBC 7.3 k/uL (3.8-10.6)
[2019-09-27 04:52] LABS: HCT 33.9 % (34.0-46.0); HGB 11.1 gm/dL (11.4-16.0); MCH 30.4 pg (25.0-35.0); MCHC 32.6 g/dL (31.0-37.0); MCV 93.1 fL (80.0-100.0); Mean Platelet Volume 7.9; Platelet Count 230 k/uL (150-450); RBC 3.64 m/uL (3.80-5.40); RDW 13.1 % (11.5-15.5); WBC 7.4 k/uL (3.8-10.6)
[2019-09-27 05:02] LABS: African American GFR (CKD) >90 (>60 ml/min/1.73 sqM); Anion Gap 6 mmol/L; Blood Urea Nitrogen 7 mg/dL (7-17); Calcium 8.7 mg/dL (8.4-10.2); Carbon Dioxide 21 mmol/L (22-30); Chloride 108 mmol/L (98-107); Glucose 118 mg/dL (74-99); Non-African American GFR(CKD) 87 (>60 ml/min/1.73 sqM); Potassium 3.9 mmol/L (3.5-5.1); Sodium 135 mmol/L (137-145)
[2019-09-27] MEDS: LEVOTHYROXINE 88 MCG TAB PO SCH (06:11)
[2019-09-27] MEDS: PANTOPRAZOLE 40 MG/10 ML VIAL IVP SCH ×2 (07:54→21:54)
[2019-09-27] MEDS: amLODIPine 5 MG TAB PO SCH (07:56)
[2019-09-27] MEDS: hydroCHLOROthiazide 25 MG TAB PO SCH (07:57)
[2019-09-27] MEDS: lisinopriL 10 MG TAB PO SCH (07:57)
--- NOTE | 2019-09-27 14:51 | P.PN ---
Subjective Progress Note Date: 09/27/19 Principal diagnosis: Hematochezia Patient seen and examined. No acute events overnight patient reports 2-3 bowel movements today bright red blood per rectum. She denies any chest pain, shortness breath or palpitations. No nausea or vomiting. No fever or chills. No dizziness. Objective - Vital Signs Vital signs: Vital Signs Temp 98.7 F 09/27/19 14:30 Pulse 83 09/27/19 14:30 Resp 16 09/27/19 14:30 BP 121/75 09/27/19 14:30 Pulse Ox 95 09/27/19 14:30 Intake & Output 09/26/19 09/27/19 09/27/19 18:59 06:59 18:59 Intake Total 750 800 Output Total 1500 Balance -750 800 Weight 120.6 kg Intake: IV 750 800 Dextrose 5%-0.45% NaCl 1, 500 000 ml @ 125 mls/hr IV . Q8H [facility] Rx#:[id number] Sodium Chloride 0.9% 1, 250 800 000 ml @ 50 mls/hr IV . Q20H [facility] Rx#:[id number] Output: Urine 1500 Other: Voiding Method Bedside Commode Toilet Toilet # Voids 1 1 2 # Bowel Movements 1 2 - Exam General: [non toxic], [no distress], [appears at stated age] Derm: [warm], [dry] Head: [atraumatic], [normocephalic], [symmetric] Eyes: [EOMI], [no lid lag], [anicteric sclera] Mouth: [no lip lesion], [mucus membranes moist] Cardiovascular: [S1S2 reg], [no murmur], [positive posterior tibial pulse bilateral], Lungs: [CTA bilateral], [no rhonchi, no rales] , [no accessory muscle use] Abdominal: [soft], [ nontender to palpation], [no guarding], [no appreciable organomegaly] Ext: [no gross muscle atrophy], [no edema], [no contractures] Neuro: [ CN II-XI grossly intact], [no focal neuro deficits] Psych: [Alert], [oriented], [appropriate affect] - Labs CBC & Chem 7: 09/27/19 04:40 09/27/19 04:40 Labs: Abnormal Lab Results - Last 24 Hours (Table) 09/26/19 09/26/19 09/27/19 Range/Units 17:06 22:58 04:40 RBC 3.67 L 3.41 L (3.80-5.40) m/uL Hgb 10.7 L 10.2 L (11.4-16.0) gm/dL Hct 31.0 L (34.0-46.0) % Sodium 135 L (137-145) mmol/L Chloride 108 H (98-107) mmol/L Carbon Dioxide 21 L (22-30) mmol/L Glucose 118 H (74-99) mg/dL 09/27/19 Range/Units 04:40 RBC 3.64 L (3.80-5.40) m/uL Hgb 11.1 L (11.4-16.0) gm/dL Hct 33.9 L (34.0-46.0) % Sodium (137-145) mmol/L Chloride (98-107) mmol/L Carbon Dioxide (22-30) mmol/L Glucose (74-99) mg/dL Assessment and Plan Assessment: Blood per rectum, with GI bleed secondary to polypectomy removal -Hemoglobin stable -Clear liquid diet -GI recommendations -Continue cycle CBCs -Protonix IV twice a day Hyperchloremic metabolic acidosis -Likely due to infused IVF. -DC IVF and encourage hydration by mouth Acute blood loss anemia - due to GI bleed - Follow CBC - No indication for transfusion at this point in time Hypertension - resume norvasc and ACEI - Resume HCTZ in AM Hypothyroidism - Statin [Patient with continued rectal bleeding. Hemoglobin stable. GI on board. P ossible colonoscopy tomorrow. She is pending clinical improvement. Likely DC in 1-2 days.]
[2019-09-27] MEDS ORDERED: PEG 3350-NA SULF,BICARB,CL/KCL 4,000 ML BOTTLE PO ONE (18:00)
[2019-09-27 19:38] LABS: HCT 33.7 % (34.0-46.0); HGB 10.8 gm/dL (11.4-16.0); MCHC 32.2 g/dL (31.0-37.0); MCV 93.1 fL (80.0-100.0); Mean Platelet Volume 7.9; Platelet Count 225 k/uL (150-450); RBC 3.62 m/uL (3.80-5.40); RDW 13.3 % (11.5-15.5); WBC 8.4 k/uL (3.8-10.6)
--- NOTE | 2019-09-27 22:04 | P.PN ---
Subjective Progress Note Date: 09/27/19 Objective - Vital Signs Vital signs: Vital Signs Temp 97.9 F 09/27/19 10:06 Pulse 89 09/27/19 10:06 Resp 16 09/27/19 10:06 BP 125/77 09/27/19 10:06 Pulse Ox 97 09/27/19 10:06 Intake & Output 09/26/19 09/27/19 09/27/19 18:59 06:59 18:59 Intake Total 750 800 Output Total 1500 Balance -750 800 Weight 120.6 kg Intake: IV 750 800 Dextrose 5%-0.45% NaCl 1, 500 000 ml @ 125 mls/hr IV . Q8H [facility] Rx#:[id number] Sodium Chloride 0.9% 1, 250 800 000 ml @ 50 mls/hr IV . Q20H [facility] Rx#:[id number] Output: Urine 1500 Other: Voiding Method Bedside Commode Toilet Toilet # Voids 1 1 # Bowel Movements 1 - Labs CBC & Chem 7: 09/27/19 19:22 09/27/19 04:40 Labs: Abnormal Lab Results - Last 24 Hours (Table) 09/26/19 09/26/19 09/26/19 Range/Units 11:31 17:06 22:58 RBC 3.72 L 3.67 L 3.41 L (3.80-5.40) m/uL Hgb 11.1 L 10.7 L 10.2 L (11.4-16.0) gm/dL Hct 31.0 L (34.0-46.0) % Sodium (137-145) mmol/L Chloride (98-107) mmol/L Carbon Dioxide (22-30) mmol/L Glucose (74-99) mg/dL 09/27/19 09/27/19 Range/Units 04:40 04:40 RBC 3.64 L (3.80-5.40) m/uL Hgb 11.1 L (11.4-16.0) gm/dL Hct 33.9 L (34.0-46.0) % Sodium 135 L (137-145) mmol/L Chloride 108 H (98-107) mmol/L Carbon Dioxide 21 L (22-30) mmol/L Glucose 118 H (74-99) mg/dL Assessment and Plan (1) Post-polypectomy bleeding Narrative/Plan: 73-year-old female with multiple medical comorbidities who presented after colonoscopy earlier in the day with removal of multiple large polyps including a large cecal polyp which was incompletely resected. Patient had multiple episodes of painless bright red blood per rectum. Hemodynamically she remains stable but was admitted to the ICU for further monitoring. Patient's hemoglobin remained stable at 11.1, but she continues to have episodes of bright red blood per rectum. Current Visit: Yes Status: Acute Code(s): INW2530 - SNOMED Code(s): 846782404 (2) History of colon polyps Current Visit: Yes Status: Acute Code(s): Z86.010 - PERSONAL HISTORY OF COLONIC POLYPS SNOMED Code(s): 876792049 (3) Hematochezia Current Visit: Yes Status: Acute Code(s): K92.1 - MELENA SNOMED Code(s): 599094981 Plan: Supportive care Okay for liquid diet Continue to monitor hemoglobin and hematocrit every 6 hours Bowel prep ordered We'll proceed to colonoscopy tomorrow patient is a patient has continued to have episodes of GI bleeding Thank you for allowing us to participate in the care of the patient
[2019-09-28] MEDS: LEVOTHYROXINE 88 MCG TAB PO SCH (06:14)
[2019-09-28 08:02] LABS: African American GFR (CKD) >90 (>60 ml/min/1.73 sqM); Anion Gap 6 mmol/L; Blood Urea Nitrogen 6 mg/dL (7-17); Calcium 8.6 mg/dL (8.4-10.2); Carbon Dioxide 26 mmol/L (22-30); Chloride 105 mmol/L (98-107); Glucose 97 mg/dL (74-99); Non-African American GFR(CKD) 85 (>60 ml/min/1.73 sqM); Potassium 3.7 mmol/L (3.5-5.1); Sodium 137 mmol/L (137-145)
[2019-09-28] MEDS: PANTOPRAZOLE 40 MG/10 ML VIAL IVP SCH ×2 (08:32→20:27)
[2019-09-28] MEDS: amLODIPine 5 MG TAB PO SCH (08:33)
[2019-09-28] MEDS: lisinopriL 10 MG TAB PO SCH (08:33)
[2019-09-28] MEDS: hydroCHLOROthiazide 25 MG TAB PO SCH (08:33)
[2019-09-28 11:28] LABS: HGB 10.2 gm/dL (11.4-16.0); MCH 30.1 pg (25.0-35.0); MCHC 32.7 g/dL (31.0-37.0); Mean Platelet Volume 9.7; Platelet Count 210 k/uL (150-450); RBC 3.37 m/uL (3.80-5.40); RDW 13.4 % (11.5-15.5); WBC 5.9 k/uL (3.8-10.6)
[2019-09-28] MEDS ORDERED: PROPOFOL 10 MG/ML 20 ML VIAL IV ONE (12:20)
[2019-09-28] MEDS ORDERED: IV FLUID CONTINUATION 1,000 ML IV ONE (12:21)
--- NOTE | 2019-09-28 12:50 | P.DS ---
Providers Date of admission: 09/25/19 20:54 Expected date of discharge: 09/28/19 Attending physician: José Canas MD Consults: 09/25/19 20:54 Consult Physician Stat Consulting Provider: Eze Cantrell Consult Reason/Comments: critical care Do you want consulting provider notified?: Already Contacted Consult Physician Stat Consulting Provider: Frank Burgess Consult Reason/Comments: gi hemorrhage Do you want consulting provider notified?: Already Contacted Primary care physician: [facility] Course: Patient is a 73-year-old female with a history of Grawz-Vgkod-Kszkl syndrome, hypertension, and hypothyroidism who presented to the emergency department secondary to GI bleed. She had a colonoscopy in the morning of 09/24 with polypectomy. She had a bloody bowel movement on September 26. Her hemoglobin remained stable. GI was consulted and recommended colonoscopy on September 27. Patient was seen and examined. No acute events overnight. Patient reports liquid bowel movement without blood this morning. She denies any dizziness. She denies any chest pain, shortness breath or palpitations. No nausea or vomiting. No fever or chills. Plans for colonoscopy today. General: [non toxic], [no distress], [appears at stated age] Derm: [warm], [dry] Head: [atraumatic], [normocephalic], [symmetric] Eyes: [EOMI], [no lid lag], [anicteric sclera] Mouth: [no lip lesion], [mucus membranes moist] Cardiovascular: [S1S2 reg], [no murmur], [positive posterior tibial pulse bilateral], Lungs: [CTA bilateral], [no rhonchi, no rales] , [no accessory muscle use] Abdominal: [soft], [ nontender to palpation], [no guarding], [no appreciable organomegaly] Ext: [no gross muscle atrophy], [no edema], [no contractures] Neuro: [ CN II-XI grossly intact], [no focal neuro deficits] Psych: [Alert], [oriented], [appropriate affect] Blood per rectum, with GI bleed secondary to polypectomy removal -Hemoglobin stable -Clear liquid diet -GI recommendations, plans for colonoscopy today -Continue cycle CBCs -Protonix IV twice a day Acute blood loss anemia - due to GI bleed - Follow CBC - No indication for transfusion at this point in time Hypertension - resume norvasc and ACEI - Resume HCTZ Hypothyroidism - Statin [Patient with continued rectal bleeding. Hemoglobin stable. GI on board. Colonoscopy today. She is pending clinical improvement. DC planning depending on results of colonoscopy. This complex discharge took about 35 minutes to complete.] Procedures: Colonoscopy Patient Condition at Discharge: Stable Plan - Discharge Summary Discharge Rx Participant: Yes New Discharge Prescriptions: Continue Levothyroxine Sodium [Synthroid] 88 mcg PO DAILY hydroCHLOROthiazide [Hydrodiuril] 25 mg PO DAILY amLODIPine [Norvasc] 5 mg PO DAILY Benazepril [Lotensin] 10 mg PO DAILY Omeprazole 20 mg PO DAILY metroNIDAZOLE [metroNIDAZOLE 0.75% Gel] 1 applic TOPICAL BID PRN PRN Reason: FACE Discharge Medication List Benazepril [Lotensin] 10 mg PO DAILY 09/23/19 [History] Levothyroxine Sodium [Synthroid] 88 mcg PO DAILY 09/23/19 [History] Omeprazole 20 mg PO DAILY 09/23/19 [History] amLODIPine [Norvasc] 5 mg PO DAILY 09/23/19 [History] hydroCHLOROthiazide [Hydrodiuril] 25 mg PO DAILY 09/23/19 [History] metroNIDAZOLE [metroNIDAZOLE 0.75% Gel] 1 applic TOPICAL BID PRN 09/25/19 [History] Follow up Appointment(s)/Referral(s): Elham Plummer PAC [REFERRING] - 10/07/19 8:00 am Anthony Elizondo MD [Primary Care Provider] - 10/02/19 10:15 am () Activity/Diet/Wound Care/Special Instructions: Diet: Low-salt Follow-up PCP within 3 days. Follow-up with GI within 1 week. Take all medications as advised. Come back to the ED or call 911 for worsening chest pain, shortness of breath, palpitations, dizziness or rectal bleeding. Discharge Disposition: HOME SELF-CARE
--- NOTE | 2019-09-28 13:01 | P.PCN ---
Date of Procedure: 09/28/19 Procedure(s) Performed: BRIEF HISTORY: Patient is a 71-year-old pleasant white female admitted hospital with post polypectomy lower GI bleed. She had an elective colonoscopy on September 24 and 4 polyps were removed. The largest polyp was too the base of the cecum measuring about 3 cm and broad-based that was removed in a piecemeal fashion. Patient was discharged home from recovery and 6 of was later she started having rectal bleeding. She was subsequently admitted to the hospital. She dropped hemoglobin from 12-10 g/dL. She continued to have some bleeding yesterday evening and hence she is scheduled for colonoscopy for management of post- polypectomy lower GI bleed. PROCEDURE PERFORMED: Colonoscopy with Endo Clip placement. PREOPERATIVE DIAGNOSIS: Acute post polypectomy lower GI bleed. IV sedation per Anesthesia. PROCEDURE: After informed consent was obtained, the patient, was brought into the endoscopy unit. IV sedation was administered by Anesthesia under continuous monitoring. Digital rectal examination was normal. Initially the Olympus CF-160 flexible video colonoscope was then inserted in the rectum, gradually advanced into the cecum without any difficulty. Careful examination was performed as the scope was gradually being withdrawn. Ileocecal valve and the appendiceal orifice were visualized and appeared normal. Prep was fair. In the base of the cecum at the site of previous polypectomy there was a 3 cm linear ulceration identified with no active bleeding or clots noted. This appeared to be the source of recent was polypectomy bleed. I placed 2 endoclips on the ulcer. The rest of the cecum, ascending colon, transverse colon, appeared normal. The polypectomy site in the descending colon and sigmoid colon were visualized and appeared to have small superficial ulceration but no active bleeding. The rectum appeared normal. Retroflexion was performed in the rectum and no lesions were seen. The patient tolerated the procedure well. IMPRESSION: Slightly centimeter linear ulceration noted at the site of polypectomy in the base of the cecum with no active bleeding is status post Endo Clip placement as described above Polypectomy site noted in the descending colon and sigmoid colon with no evidence of bleeding. RECOMMENDATIONS: Findings of this examination were discussed with the patient as well as a family. At this time she'll start on a full liquid diet. Watch for 1 more day. If she is stable she can be discharged home tomorrow morning.
[2019-09-29 00:37] LABS: HCT 31.7 % (34.0-46.0); HGB 10.2 gm/dL (11.4-16.0); MCH 29.6 pg (25.0-35.0); MCHC 32.3 g/dL (31.0-37.0); MCV 91.6 fL (80.0-100.0); Mean Platelet Volume 9.3; Platelet Count 222 k/uL (150-450); RBC 3.46 m/uL (3.80-5.40); RDW 13.3 % (11.5-15.5); WBC 7.6 k/uL (3.8-10.6)
[2019-09-29] MEDS: LEVOTHYROXINE 88 MCG TAB PO SCH (05:58)
[2019-09-29 07:49] VITALS: BP 117/76; PULSE 78; RESP 18; TEMP 98.3
[2019-09-29] MEDS: amLODIPine 5 MG TAB PO SCH (08:13)
[2019-09-29] MEDS: lisinopriL 10 MG TAB PO SCH (08:13)
[2019-09-29] MEDS: PANTOPRAZOLE 40 MG/10 ML VIAL IVP SCH (08:13)
[2019-09-29] MEDS: hydroCHLOROthiazide 25 MG TAB PO SCH (08:13)
--- NOTE | 2019-09-29 23:15 | PN ---
PROGRESS NOTE DATE OF DICTATION: 09/29/2019 The patient is a 73-year-old pleasant white female admitted to the hospital with post- polypectomy lower GI bleed. She dropped her hemoglobin to 10.5 g/dL. She underwent a colonoscopy yesterday which revealed an ulceration in the cecum at the site of previous polypectomy and Endoclips were placed. The patient doing well. No further bleeding. Had 2 bowel movements today. Hemoglobin was 10.2 g/dL. PHYSICAL EXAMINATION: Appears comfortable. VITAL SIGNS: Stable. Blood pressure 117/76, pulse rate 78, temperature 98.3. HEENT examination unremarkable. Conjunctivae pink. Sclerae anicteric. Oral cavity no lesions. NECK: No JVD or lymph node enlargement. CHEST: Clear to auscultation. HEART: Regular rate and rhythm. ABDOMEN: Soft. Bowel sounds are positive. No organomegaly. EXTREMITIES: No pedal edema. NEUROLOGIC: Alert and oriented x3. No focal deficits. LABS: WBC 7.6, hemoglobin 10.2, platelets normal. IMPRESSION: 1. Acute post-polypectomy lower gastrointestinal bleed, status post colonoscopy yesterday with Endoclip placement. Patient doing well. No further bleeding. Hemoglobin stable at 10.2 g/dL. 2. History of colon polyps noted on recent colonoscopy 5 days ago. RECOMMENDATIONS: 1. Advance diet. 2. She can be discharged home today with outpatient followup in 2 weeks to discuss the biopsy results. Thank you for this consultation. MMCHAVOL / IJN: [id number] /
== END 2019-09-29 11:28 | disposition home or self-care (01) | DRG 920 ==
LOC: EC 17:34 → 2SICU 20:54 → 4SSUR 09-27 09:33
PROVIDERS: ADMIT Internal Medicine; ATTEND Internal Medicine
PROC: 0W3P8ZZ Control Bleeding in Gastrointestinal Tract, Via Natural or Artificial Opening Endoscopic (ICD-10-PCS; principal; 2019-09-28 08:35)
DX: K91.840 Postprocedural hemorrhage of a digestive system organ or structure following a digestive system procedure (principal); D62 Acute posthemorrhagic anemia; E87.2 Acidosis; K21.9 Gastro-esophageal reflux disease without esophagitis; I10 Essential (primary) hypertension; I78.0 Hereditary hemorrhagic telangiectasia; Z96.652 Presence of left artificial knee joint; E03.9 Hypothyroidism, unspecified; Y83.8 Other surgical procedures as the cause of abnormal reaction of the patient, or of later complication, without mention of misadventure at the time of the procedure; Z79.890 Hormone replacement therapy; Z79.899 Other long term (current) drug therapy; Z88.8 Allergy status to other drugs, medicaments and biological substances; Z88.2 Allergy status to sulfonamides; Z90.49 Acquired absence of other specified parts of digestive tract; Z98.51 Tubal ligation status; Z98.890 Other specified postprocedural states; Z87.891 Personal history of nicotine dependence; Z82.49 Family history of ischemic heart disease and other diseases of the circulatory system; Z82.5 Family history of asthma and other chronic lower respiratory diseases; Z83.2 Family history of diseases of the blood and blood-forming organs and certain disorders involving the immune mechanism; Z87.19 Personal history of other diseases of the digestive system
CPT/HCPCS: 36415; 45382; 80048; 80053; 84132; 84484; 85025; 85027; 85610; 85730; 86850; 86900; 86901; 93005; 96374; 99284

== ENCOUNTER → 2020-11-15 | Outpatient (CLI) | payer MEDICARE ==
--- NOTE | 2020-11-15 18:32 | CONS ---
CONSULTATION REASON FOR CONSULTATION: Suspected sleep apnea. This is an obese 75-year-old female patient was referred to me for sleep evaluation. They were concerned about her sleep quality. I have taken care of this patient's who approximately a year ago. She was the main caregiver. She used to wake up constant in the middle of night to attend on his medical needs. Since he , the patient's sleep quality has not been the same. The patient essentially is going to bed around 10 o'clock and she is getting out of bed somewhere between 4 and 5:00 am in the morning. In the middle of the night, she would wake up on several occasions to use the bathroom around midnight and around 2:00 a.m. usually. Whenever she is awake, she gets up and she eats a piece of cake and she drinks coffee and she reads books and it is hard for her to go to sleep. Ultimately, she would get out of bed at around 5 o'clock and she will take another small nap and she may take a nap or 2 during the day. This has been an ongoing pattern for over the past one year. At the same time, she snores. She occasionally grinds her teeth. She has been told also to have some issues with sleepwalking. She does not take any form of sleep aid or sleeping pill. No major hypersomnia or sleepiness during the day. No recent weight gain or weight loss. No history of anxiety. No history of depression. No history of any chronic pain or shortness of breath or angina overnight. No substance abuse. No alcoholism. Her current Creighton score is 7. PAST MEDICAL HISTORY: Obesity, hypertension, hypothyroidism. PAST SURGICAL HISTORY: Include appendectomy, carpal tunnel release bilaterally, tubal ligation, and total knee replacement and resection of a skin cancer. DRUG ALLERGIES: SULFA AND CRESTOR. MEDICATION: Include Norvasc, benazepril, levothyroxine, hydrochlorothiazide, omeprazole. SOCIAL HISTORY: She is an ex-smoker. No history of alcoholism. No history of drugs. FAMILY HISTORY: Negative for sleep apnea. REVIEW OF SYSTEMS: Fourteen-point review of system was done and positive findings are mentioned in history of present illness. Of significance is her is the absence of any falling asleep while driving and she denies being involved in a motor vehicle accident because of feeling drowsy or sleepy. She feels that she is sleeping a good 5-6 hours. She prefers to sleep on her side. She does read books in her bedroom environment. She takes afternoon naps. Overall, she is drinking around 4-5 cups of coffee, and she also drinks coffee while she wakes up in the middle of the night. As mentioned, she has taken around 3-4 naps during the day. No restlessness in lower extremities. No episodes of waking up, choking or gasping for air. PHYSICAL EXAMINATION: BP is 159/88, pulse 82, respirations 20, temperature 97.5. Saturation 95% on room air. BMI is 42.6. Creighton score is 7. Neck size 17 inches. Weight is 270, height is 5 feet 7 inches. GENERAL appearance: Calm, comfortable. HEAD atraumatic, normocephalic. NECK: Supple. No JVD. No goiter. No neck masses. Mallampati class 4. LUNGS: Diminished otherwise clear. HEART: Heart sounds are regular rate and rhythm. Normal S1, S2. No S3, S4. No murmurs. ABDOMEN: Soft, nontender. No organomegaly. EXTREMITIES: No edema. No cyanosis or clubbing. NEUROLOGICALLY: The patient is awake and alert. There are no focal neurological deficits. IMPRESSION: 1. Hypersomnia, Creighton score of 7. Since loss of her to medical illness, the patient has involved herself in various activities which has impaired her sleep quality in general, her sleep hygiene measures have been quite poor and at the same time, there may be a low likelihood that the patient may have an underlying sleep apnea. Nevertheless, fixing her sleeping habits and sleep schedule and hygiene measures which should be a priority in this patient prior to committing her for further testing. 2. Obesity. 3. Hypertension. 4. Hypothyroidism. PLAN: I am recommending the following for this patient: 1. Cut down the fluid intake at least 3 hours prior to bedtime. 2. Take a diuretic in the morning rather than at nighttime to prevent nocturnal urination and arousals. 3. Awakenings that occur in the middle of the night should not be followed up by any eating activities or drinking caffeine. In fact, the patient was asked to cut down any form of caffeinated beverages at least 3 hours prior to going to sleep. She is to implement that. 4. Exercise late in the afternoon should help to improve her sleep quality and efficiency. 5. Avoid taking naps during the day and maintain a regular sleep schedule. 6. Encourage weight loss. 7. Sleep apnea polysomnography will be done only if the above-mentioned measures fail to improve the patient's sleep. We will continue to follow. The patient will contact me back within next few months to discuss her progress. 8. Meanwhile she is going on a trip to [place] to visit family. She is going to work on these sleep hygiene measures and will let me know her progress. URVASHI / BETTIE: [id number] /
== END ==
LOC: SLEEP 15:32
PROVIDERS: ATTEND Internal Medicine Critical Care Medicine
DX: G47.10 Hypersomnia, unspecified (principal); E03.9 Hypothyroidism, unspecified; E66.9 Obesity, unspecified; I10 Essential (primary) hypertension; Z79.899 Other long term (current) drug therapy; Z68.41 Body mass index [BMI] 40.0-44.9, adult; Z87.891 Personal history of nicotine dependence; Z88.2 Allergy status to sulfonamides; Z88.8 Allergy status to other drugs, medicaments and biological substances
CPT/HCPCS: 99211

== ENCOUNTER 2020-11-25 15:00 | Emergency (ER) | payer MEDICARE ==
[2020-11-25 15:05] VITALS: RESP 18
--- NOTE | 2020-11-25 16:43 | XR ---
EXAMINATION TYPE: XR lumbar spine 2 or 3V DATE OF EXAM: 11/25/2020 COMPARISON: NONE HISTORY: Fall. Pain TECHNIQUE: 3 views FINDINGS: Lumbar vertebra have normal alignment. Posterior elements are intact. There is no compressi on fracture. Disc spaces are fairly normal. Sacroiliac joints are intact. There is minor degenerative spurring at L1-2. There is 15% wedging of T12 vertebral body. There is also slight depression superi or endplate of T11. IMPRESSION: Mild loss of height of T12 and T11 vertebra of uncertain age. No fracture seen of the lum bar spine.
--- NOTE | 2020-11-25 17:39 | ED ---
Fall HPI - General Chief Complaint: Fall Stated Complaint: Fell on knees and hips Time Seen by Provider: 11/25/20 15:36 Source: patient, RN notes reviewed Mode of arrival: wheelchair Limitations: no limitations - History of Present Illness Initial Comments: Patient is a 75-year-old female presenting to the emergency Department with complaints of some lower back pain and radiation into the right leg. She states about one week ago she fell on her bottom steps, with her right leg going forward and her left leg was behind her. She states she was able to get up and only had very minimal pain at that time. Over the next couple days started developing some mild low back pain. A couple days ago she lifted a heavy container and then afterwards noticed some more back pain. Over the last 1-2 days she states the pain in her low back is worse, she has pain radiating down into her right leg as well. She denies any fevers or chills, no numbness and t ingling into her lower extremities, no saddle paresthesias, no bowel or bladder incontinence. She denies any previous surgeries to her low back. She did go to another medical facility, she states it is a computed tomography scan of her abdomen region and thinks it got her back but is not sure, they stated they did not find anything. She has no further complaints at this time. - Related Data Home Medications Medication Instructions Recorded Confirmed Benazepril [Lotensin] 10 mg PO DAILY 09/23/19 11/25/20 Levothyroxine Sodium [Synthroid] 88 mcg PO DAILY 09/23/19 11/25/20 Omeprazole 20 mg PO DAILY 09/23/19 11/25/20 amLODIPine [Norvasc] 5 mg PO DAILY 09/23/19 11/25/20 hydroCHLOROthiazide [Hydrodiuril] 25 mg PO DAILY 09/23/19 11/25/20 Previous Rx's Medication Instructions Recorded Cyclobenzaprine [Flexeril] 5 mg PO TID PRN #15 tablet 11/25/20 predniSONE 50 mg PO DAILY #5 tab 11/25/20 Allergies Allergy/AdvReac Type Severity Reaction Status Date / Time Sulfa (Sulfonamide Allergy Anaphylaxis Verified 11/25/20 17:06 Antibiotics) rosuvastatin [From Crestor] AdvReac SEVERE Verified 11/25/20 17:06 JOINT PAIN Review of Systems ROS Statement: Those systems with pertinent positive or pertinent negative responses have been documented in the HPI. ROS Other: All systems not noted in ROS Statement are negative. Past Medical History Past Medical History: Blood Disorder, GERD/Reflux, Hypertension, Thyroid Disorder Additional Past Medical History / Comment(s): HX OWRD (OSLER LARIOS RENDU DISEASE-BLOOD DISORDER). + COLOGARD History of Any Multi-Drug Resistant Organisms: None Reported Past Surgical History: Appendectomy, Joint Replacement, Orthopedic Surgery, Tubal Ligation Additional Past Surgical History / Comment(s): BILAT CTR. LT TKA. COLONOSCOPY. knee replacment Past Anesthesia/Blood Transfusion Reactions: No Reported Reaction Past Psychological History: No Psychological Hx Reported Smoking Status: Former smoker Past Alcohol Use History: None Reported Past Drug Use History: None Reported - Past Family History Mother Family Medical History: Blood Disorder, COPD Additional Family Medical History / Comment(s): OWRD-BLEEDING DISORDER, Father Family Medical History: Cancer, Congestive Heart Failure (CHF) Additional Family Medical History / Comment(s): SKIN, General Exam - General Exam Comments Initial Comments: GENERAL: Patient is well-developed and well-nourished. Patient is nontoxic and in no acute distress. HEAD: Atraumatic, normocephalic. EYES: Pupils equal round and reactive to light, extraocular movements intact, sclera anicteric, conjunctiva are normal. Eyelids were unremarkable. ENT: Moist mucous membranes. NECK: Normal range of motion, supple without lymphadenopathy or JVD. LUNGS: Unlabored respirations. Breath sounds clear to auscultation bilaterally and equal. No wheezes rales or rhonchi. HEART: Regular rate and rhythm without murmurs, rubs or gallops. ABDOMEN: Soft, nontender, normoactive bowel sounds. No guarding, no rebound. No masses appreciated. : Deferred MUSCULOSKELETAL: Normal extremities with adequate strength and normal range of motion, no pitting or edema. No clubbing or cyanosis. Mild tenderness to palpation of the lumbar region, more so on the right lower side. NEUROLOGICAL: Patient is alert and oriented x 3. Motor and sensory are also intact. Cranial nerves II through XII grossly intact. Symmetrical smile. Normal speech, normal gait. PSYCH: Normal mood, normal affect. SKIN: Warm, Dry, normal turgor, no rashes or lesions noted. Limitations: no limitations Course Vital Signs 11/25/20 11/25/20 15:01 17:50 Temperature 98.8 F 98.1 F Pulse Rate 69 87 Respiratory 18 18 Rate Blood Pressure 134/74 134/83 O2 Sat by Pulse 96 96 Oximetry Medical Decision Making - Medical Decision Making Patient is a 75-year-old female here with low back pain and pain radiating to the right leg after she fell about a week ago. No alarming symptoms and exam, no acute neuro deficits. X-rays reveal a mild loss of height in T12 and T11 vertebrae, no fracture seen and lumbar spine. I did offer patient something for pain however she refused. I discussed these findings with her. I recommended heat to the area, gentle massage and to limit her lifting. Trial of muscle relaxer and steriods. She is agreeable to this. She'll follow up with her primary care. Return parameters were discussed with her and she verbalized understanding. Case discussed with Dr. Cruz. Disposition Clinical Impression: Fall, Lumbar pain, Radicular pain of right lower extremity Disposition: HOME SELF-CARE Condition: Stable Instructions (If sedation given, give patient instructions): Low Back Strain (ED) Additional Instructions: Please return to the Emergency Department if symptoms worsen or any other concerns. Trial of steroids and muscle relaxers as discussed. Continue with heat and cold to the area. Follow-up with orthopedics if no improvement. Prescriptions: Cyclobenzaprine [Flexeril] 5 mg PO TID PRN #15 tablet PRN Reason: Muscle Spasm predniSONE 50 mg PO DAILY #5 tab Is patient prescribed a controlled substance at d/c from ED?: No Referrals: Meron Garcia MD [Primary Care Provider] - 1-2 days Nicholas Rockwell MD [STAFF PHYSICIAN] - 1-2 days Time of Disposition: 17:39
[2020-11-25 17:59] VITALS: BP 134/83; PULSE 87; TEMP 98.1
== END 2020-11-25 17:50 | disposition home or self-care (01) ==
LOC: EC 15:00
DX: M54.16 Radiculopathy, lumbar region (principal); I10 Essential (primary) hypertension; K21.9 Gastro-esophageal reflux disease without esophagitis; Z79.52 Long term (current) use of systemic steroids; Z79.890 Hormone replacement therapy; Z79.899 Other long term (current) drug therapy; Z87.891 Personal history of nicotine dependence; Z88.2 Allergy status to sulfonamides; Z90.49 Acquired absence of other specified parts of digestive tract; Z82.49 Family history of ischemic heart disease and other diseases of the circulatory system; W10.9XXA Fall (on) (from) unspecified stairs and steps, initial encounter
CPT/HCPCS: 72100; 99284

== ENCOUNTER → 2021-11-14 | Outpatient (CLI) | payer MEDICARE ==
--- NOTE | 2021-11-14 14:12 | US ---
EXAMINATION TYPE: US extremity nonvasc mass LT DATE OF EXAM: 11/14/2021 COMPARISON: NONE CLINICAL HISTORY: R22.32 Localized swelling, mass and lump, left upp. Left wrist area of pain Scanned left anterior wrist at patient's area of pain - appears wnl at this time Targeted ultrasound shows prominent but patent superficial vessel. No concerning solid or cystic mass or fluid collection seen on images saved. IMPRESSION: As above.
== END | disposition home or self-care (01) ==
LOC: RADUSWWP 13:10
PROVIDERS: ATTEND Family Medicine
DX: R22.32 Localized swelling, mass and lump, left upper limb (principal)